=== PATIENT | female | born 1955 | race Caucasian/White ===

== ENCOUNTER 2016-12-31 16:21 | Emergency (ER) | payer BC ==
[2016-12-31 16:24] VITALS: TEMP 98.5; BMI 40.9
--- NOTE | 2016-12-31 18:16 | PDOC ---
[id number] 61 year old female with significant medical hx of GERD, HTN, and intermittent heart palpitations who is presenting to the ED with abdominal pain and nausea. Patient reports two days ago having lower abdominal pain with nausea , vomiting, and diarrhea. Patient endorses four episodes of bloody loose stool at that time. Today the patient denies any vomiting but complains of crampy lower abdominal pain, that she describes as sharp, with chills and nausea. The patient also reports having one BM today. The patient endorses a history of episodic colitis. Denies fever, dysuria, chest pain, recent abx or recent travel. PMD: Mane Smith MD <Chelita Eubanks - Last Filed: 12/31/16 18:18> - General History Source: Patient, Care Provider <Karina Saenz - Last Filed: 01/08/17 13:31> - General Chief Complaint: Pain Stated Complaint: STOMACH PAIN Past History <Chelita Eubanks - Last Filed: 12/31/16 18:18> - Past Medical History Cardiac Disorders: Yes (? SVT) GI Disorders: Yes (GASTRITIS) HTN: Yes - Surgical History Cholecystectomy: Yes - Psycho/Social/Smoking Cessation Hx Anxiety: No Suicidal Ideation: No Smoking Status: No Smoking History: Never smoked Number of Cigarettes Smoked Daily: 0 Information on smoking cessation initiated: No Hx Alcohol Use: No Drug/Substance Use Hx: No Substance Use Type: None Hx Substance Use Treatment: No <Karina Saenz - Last Filed: 01/08/17 13:31> - Past Medical History Allergies/Adverse Reactions: Allergies Allergy/AdvReac Type Severity Reaction Status Date / Time No Known Allergies Allergy Verified 12/31/16 16:24 Home Medications: Ambulatory Orders Amlodipine Besylate [Norvasc] 25 mg PO DAILY 01/26/12 Pantoprazole Sodium [Protonix] 40 mg PO DAILY 12/31/14 Sulfamethoxazole/Trimethoprim [Bactrim *Ds*] 1 tab PO BID #14 tablet 12/31/16 Review of Systems - Review of Systems Comments:: 12/31/16 18:19 CONSTITUTIONAL: Present: chills Absent: fever, diaphoresis, generalized weakness, malaise, loss of appetite HEENT: Absent: rhinorrhea, nasal congestion, throat pain, throat swelling, difficulty swallowing, mouth swelling, ear pain, eye pain, visual changes CARDIOVASCULAR: Absent: chest pain, syncope, palpitations, irregular heart rate, lightheadedness , peripheral edema RESPIRATORY: Absent: cough, shortness of breath, dyspnea with exertion, orthopnea, wheezing, stridor, hemoptysis GASTROINTESTINAL: Present: abdominal pain, nausea, vomiting diarrhea, blood in stool Absent: abdominal distension, constipation, melena, hematochezia GENITOURINARY: Absent: dysuria, frequency, urgency, hesitancy, hematuria, flank pain, genital pain MUSCULOSKELETAL: Absent: myalgia, arthralgia, joint swelling SKIN: Absent: rash, itching, pallor HEMATOLOGIC/IMMUNOLOGIC: Absent: easy bleeding, easy bruising, lymphadenopathy, frequent infections ENDOCRINE: Absent: unexplained weight gain, unexplained weight loss, heat intolerance, cold intolerance NEUROLOGIC: Absent: headache, focal weakness or paresthesia, dizziness, unsteady gait, seizure, mental status changes, bladder or bowel incontinence. PSYCHIATRIC: Absent: anxiety, depression, suicidal or homicidal ideation, hallucinations <Chelita Eubanks - Last Filed: 12/31/16 18:18> - Review of Systems Constitutional: Yes: Chills. No: Diaphoresis, Fever Respiratory: No: Cough, Orthopnea Cardiac (ROS): No: Chest Pain, Edema ABD/GI: Yes: Abd. Pain w/ defecation : No: Dysuria All Other Systems: Reviewed and Negative <Karina Saenz - Last Filed: 01/08/17 13:31> *Physical Exam - Vital Signs Last Vital Signs Temp Pulse Resp BP Pulse Ox 98.5 F 79 18 155/83 98 12/31/16 16:22 12/31/16 16:22 12/31/16 16:22 12/31/16 16:22 12/31/16 16:22 - Physical Exam Comments: 12/31/16 18:21 GENERAL: Well developed, well nourished. Awake and alert. No acute distress. HEENT: Normocephalic, atraumatic. PERRLA, EOMI. No conjunctival pallor. Sclera are non- icteric. Moist mucous membranes. Oropharynx is clear. NECK: Supple. Full ROM. No JVD. Carotid pulses 2+ and symmetric, without bruits. No thyromegaly. No lymphadenopathy. CARDIOVASCULAR: Regular rate and rhythm. No murmurs, rubs, or gallops. Distal pulses are 2+ and symmetric. PULMONARY: No evidence of respiratory distress. Lungs clear to auscultation bilaterally. No wheezing, rales or rhonchi. ABDOMINAL: Obese, mild suprapubic tenderness to palpation. Non-distended. No rebound or guarding. No organomegaly. Normoactive bowel sounds. MUSCULOSKELETAL: Normal range of motion at all joints. No bony deformities or tenderness. No CVA tenderness. EXTREMITIES: No cyanosis. No clubbing. No edema. No calf tenderness. SKIN: Warm and dry. Normal capillary refill. No rashes. No jaundice. NEUROLOGICAL: Alert, awake, appropriate. Cranial nerves 2-12 intact. Normal speech. Gait is normal without ataxia. PSYCHIATRIC: Cooperative. Good eye contact. Appropriate mood and affect. <Chelita Eubanks - Last Filed: 12/31/16 18:18> - Vital Signs Last Vital Signs Temp Pulse Resp BP Pulse Ox 98.5 F 79 18 155/83 98 12/31/16 16:22 12/31/16 16:22 12/31/16 16:22 12/31/16 16:22 12/31/16 16:22 <Karina Saenz - Last Filed: 01/08/17 13:31> ED Treatment Course - LABORATORY CBC & Chemistry Diagram: 12/31/16 18:07 12/31/16 18:07 <Chelita Eubanks - Last Filed: 12/31/16 18:18> - LABORATORY CBC & Chemistry Diagram: 12/31/16 18:07 12/31/16 18:07 - RADIOLOGY Radiology Studies Ordered: Category Date Time Status ABDOMEN & PELVIS CT WITH CONTR [CT] Stat CT Scan 12/31/16 18:08 Ordered <Karina Saenz - Last Filed: 01/08/17 13:31> Medical Decision Making - Medical Decision Making 12/31/16 18:14 61 yo with h/o HTN here with episode of lower abd pain, n/v /d. pt states sxs started 2 days ago, with 3 - 4 times nonbloody emesis, loose stool with blood x 3. sharp lower abd pain. no h/o renal colic. does have h/o episodic colitis. no f/c no travel. no abx. pcp Smith. on exam, abd with mild lower abd ttp, no reboun or guarding. ddgx: diverticulitis, uti pyelo colitis, renal colic. plan labs lipase ua ct a/ p . pt declined pain medication at this time. iv hydration. denies persistant nausea. d/w dr. smith. <Karina Saenz - Last Filed: 01/08/17 13:31> *DC/Admit/Observation/Transfer - Attestations Scribe Attestion: 12/31/16 18:22 Documentation prepared by Chelita Eubanks, acting as medical voucher clerk for Karina Saenz MD. <Chelita Eubanks - Last Filed: 12/31/16 18:18> <Karina Saenz - Last Filed: 01/08/17 13:31> Diagnosis at time of Disposition: Abdominal pain Qualifiers: Abdominal location: generalized Qualified Code(s): R10.84 - Generalized abdominal pain UTI (urinary tract infection) Qualifiers: Urinary tract infection type: site unspecified Hematuria presence: without hematuria Qualified Code(s): N39.0 - Urinary tract infection, site not specified - Discharge Dispostion Disposition: HOME - Prescriptions Prescriptions: Sulfamethoxazole/Trimethoprim [Bactrim *Ds*] 1 tab PO BID #14 tablet - Referrals Referrals: Mane Smith MD [Primary Care Provider] - - Patient Instructions Printed Discharge Instructions: DI for Urinary Tract Infection (UTI), DI for Abdominal Pain-Adult Additional Instructions: Please follow u with your primary care doctor if sympotms don't improve
[2016-12-31 18:19] LABS: BASOPHIL 0.7 % (0-2.0); EOSINOPHIL 1.4 % (0-4.5); MCH 28.2 pg (25.7-33.7); MCHC 32.7 g/dl (32.0-36.0); MEAN CELL VOLUME 86.3 fl (80-96); MEAN PLT VOLUME 10.4 fl (7.5-11.1); NEUTROPHILS 61.3 % (42.8-82.8); PLATELET COUNT 219 K/MM3 (134-434); RDW 14.3 % (11.6-15.6)
[2016-12-31 18:21] LABS: URINE APPEARANCE CLEAR; URINE BILIRUBIN NEGATIVE (NEGATIVE); URINE COLOR LTYELLOW; URINE GLUCOSE (UA) NEGATIVE (NEGATIVE); URINE KETONE NEGATIVE (NEGATIVE); URINE NITRITE NEGATIVE (NEGATIVE); URINE PROTEIN NEGATIVE (NEGATIVE); URINE UROBILINOGEN NEGATIVE E.U./dl (0.2-1.0)
[2016-12-31 18:23] LABS: URINE BLOOD 2+ (NEGATIVE); URINE LEUK ESTERASE TRACE (NEGATIVE)
[2016-12-31 18:24] LABS: URINE MUCUS RARE; URINE RBC 3 /hpf (0-3); URINE WBC 6 /hpf (3-5)
[2016-12-31 19:04] LABS: ALBUMIN 3.6 g/dl (3.4-5.0); ALK PHOS 105 U/L (45-117); ANION GAP 9 (8-16); BILIRUBIN,TOTAL 0.2 mg/dL (0.2-1.0); CALCIUM 9.3 mg/dL (8.5-10.1); CO2 28 mmol/L (21-32); COCKROFT - GAULT 111.265; CREATININE 0.9 mg/dL (0.55-1.02); GLUCOSE,RANDOM 112 mg/dL (74-106); SGOT/AST 17 U/L (15-37); SGPT/ALT 28 U/L (12-78); TOT PROT 7.2 g/dl (6.4-8.2)
[2016-12-31] MEDS ORDERED: SULFAMETHOXAZOLE/TRIMETHOPRIM 800MG/160MG D.S. TABLET PO ONE (20:34)
--- NOTE | 2016-12-31 20:37 | PDOC ---
*Physical Exam - Vital Signs Last Vital Signs Temp Pulse Resp BP Pulse Ox 98.5 F 79 18 155/83 98 12/31/16 16:22 12/31/16 16:22 12/31/16 16:22 12/31/16 16:22 12/31/16 16:22 ED Treatment Course - LABORATORY CBC & Chemistry Diagram: 12/31/16 18:07 12/31/16 18:07 - ADDITIONAL ORDERS Additional order review: Laboratory Results 12/31/16 12/31/16 12/31/16 18:07 18:07 16:45 Sodium 141 Potassium 3.9 Chloride 104 Carbon Dioxide 28 Anion Gap 9 BUN 16 Creatinine 0.9 Creat Clearance w eGFR > 60 Random Glucose 112 H Calcium 9.3 Total Bilirubin 0.2 AST 17 ALT 28 Alkaline Phosphatase 105 Total Protein 7.2 Albumin 3.6 Lipase 110 Urine Color Ltyellow Urine Appearance Clear Urine pH 6.0 Urine Protein Negative Urine Glucose (UA) Negative Urine Ketones Negative Urine Blood 2+ H Urine Nitrite Negative Urine Bilirubin Negative Urine Urobilinogen Negative Ur Leukocyte Esterase Trace H Urine RBC 3 Urine WBC 6 Ur Epithelial Cells Rare Urine Mucus Rare 12/31/16 18:07 RBC 4.94 MCV 86.3 MCHC 32.7 RDW 14.3 MPV 10.4 D Neutrophils % 61.3 D Lymphocytes % 27.5 D Monocytes % 9.1 Eosinophils % 1.4 D Basophils % 0.7 *DC/Admit/Observation/Transfer Diagnosis at time of Disposition: Abdominal pain Qualifiers: Abdominal location: generalized Qualified Code(s): R10.84 - Generalized abdominal pain Urinary tract infection Qualifiers: Urinary tract infection type: site unspecified Hematuria presence: without hematuria Qualified Code(s): N39.0 - Urinary tract infection, site not specified - Discharge Dispostion Disposition: HOME Condition at time of disposition: Stable Admit: No - Referrals Referrals: Mane Rangel MD [Primary Care Provider] - - Patient Instructions Printed Discharge Instructions: DI for Urinary Tract Infection (UTI), DI for Abdominal Pain-Adult Additional Instructions: Please follow u with your primary care doctor if sympotms don't improve - Post Discharge Activity
[2016-12-31] MEDS ORDERED: SULFAMETHOXAZOLE/TRIMETHOPRIM 800MG/160MG D.S. TABLET ONE (20:52)
[2016-12-31 21:09] VITALS: BP 148/82; PULSE 77
== END 2016-12-31 21:10 | disposition home or self-care (01) ==
LOC: JER 16:21
DX: N39.0 Urinary tract infection, site not specified (principal); R00.2 Palpitations; I10 Essential (primary) hypertension; K21.9 Gastro-esophageal reflux disease without esophagitis
CPT/HCPCS: 36415; 74177-TC; 80053; 81003; 81015; 83690; 85025; 99283-25

== ENCOUNTER 2019-04-17 13:06 | Emergency (ER) | payer SELFPAY ==
[2019-04-17 13:17] VITALS: BP 124/68; PULSE 68; TEMP 98.5; BMI 42.0
--- NOTE | 2019-04-17 13:17 | PDOC ---
Rapid Medical Evaluation Chief Complaint: Nausea/Vomiting Time Seen by Provider: 04/17/19 13:15 Medical Evaluation: Allergies Allergy/AdvReac Type Severity Reaction Status Date / Time No Known Allergies Allergy Verified 03/01/18 17:36 04/17/19 13:15 CC: epigastric pain with vomiting PE: epigastric and RUQ tenderness- no guarding Orders: abdominal w/u Patient will proceed to ED for continued evaluation. Discharge Disposition - Diagnosis Abdominal pain - Referrals Referrals: Mane Rangel MD [Primary Care Provider] - - Patient Instructions - Post Discharge Activity
[2019-04-17] MEDS ORDERED: PANTOPRAZOLE SODIUM 40 MG in SODIUM CHLORIDE 100 ML IVPB ONE (13:27)
[2019-04-17] MEDS ORDERED: PANTOPRAZOLE SODIUM 40 MG/100 ML BAG IVPB ONE (13:57)
[2019-04-17 14:53] LABS: EOS % 2.2 % (0-4.5); HEMATOCRIT 42.9 % (32.4-45.2); HEMOGLOBIN 14.4 GM/dL (10.7-15.3); LYMPH % 21.7 % (8-40); MCH 29.2 pg (25.7-33.7); MCHC 33.5 g/dl (32.0-36.0); MONO % 9.4 % (3.8-10.2); NEUT % 65.7 % (42.8-82.8); PLATELET COUNT 215 K/MM3 (134-434); RBC 4.93 M/mm3 (3.60-5.2); RDW 13.8 % (11.6-15.6); WHITE BLOOD COUNT 5.6 K/mm3 (4.0-10.0)
[2019-04-17 15:19] LABS: ALBUMIN 3.4 g/dl (3.4-5.0); ALK PHOS 95 U/L (45-117); ANION GAP 5 MMOL/L (8-16); BILIRUBIN,TOTAL 0.6 mg/dL (0.2-1); BLOOD UREA NITROGEN 12.8 mg/dL (7-18); CHLORIDE 108 mmol/L (98-107); CO2 29 mmol/L (21-32); CREATININE 0.8 mg/dL (0.55-1.3); GLUCOSE,RANDOM 98 mg/dL (74-106); LIPASE 61 U/L (73-393); POTASSIUM 4.1 mmol/L (3.5-5.1); SGOT/AST 54 U/L (15-37); SGPT/ALT 54 U/L (13-61); SODIUM 142 mmol/L (136-145); TOT PROT 7.3 g/dl (6.4-8.2)
--- NOTE | 2019-04-17 15:46 | PDOC ---
History of Present Illness - General Chief Complaint: Nausea/Vomiting Stated Complaint: VOMITING,ABD PAIN,DIZZINESS Time Seen by Provider: 04/17/19 13:15 History Source: Patient Exam Limitations: No Limitations - History of Present Illness Travel History: No Initial Comments: 04/17/19 14:06 63-year-old female presents to ED with complaints of epigastric pain radiating to her right upper quadrant with mild nausea and decreased appetite. Patient denies GI disorders but does state history of GERD and takes protonic's on a daily basis although she missed today's dose patient states symptoms have been intermittent for the past few weeks and was pending blood work by her PCP Dr. smith but failed to have it collected. Timing/Duration: reports: intermittent Quality: reports: mild, moderate, sharpness Abdominal Pain Onset Location: reports: RUQ, epigastric Pain Radiation: reports: no radiation Activities at Onset: reports: none Aggravating Factors: improves with: None Alleviating Factors: improves with: None Past History - Travel Traveled outside of the country in the last 30 days: No Close contact w/someone who was outside of country & ill: No - Past Medical History Allergies/Adverse Reactions: Allergies Allergy/AdvReac Type Severity Reaction Status Date / Time No Known Allergies Allergy Verified 04/17/19 13:17 Home Medications: Ambulatory Orders Amlodipine Besylate [Norvasc] 25 mg PO DAILY 01/26/12 Pantoprazole Sodium [Protonix] 40 mg PO DAILY 12/31/14 Ibuprofen [Motrin -] 600 mg PO TID #21 tablet 03/01/18 Methocarbamol [Robaxin -] 500 mg PO TID #21 tablet 03/01/18 Cardiac Disorders: Yes (? SVT) COPD: No GI Disorders: Yes (GASTRITIS) HTN: Yes - Surgical History Cholecystectomy: No - Suicide/Smoking/Psychosocial Hx Smoking Status: No Smoking History: Never smoked Have you smoked in the past 12 months: No Number of Cigarettes Smoked Daily: 0 Hx Alcohol Use: No Drug/Substance Use Hx: No Substance Use Type: None Hx Substance Use Treatment: No Patient Lives Alone: No Lives with/in: spouse/SO Abd/GI Specific PMHX - Complaint Specific PMHX GERD: Yes Review of Systems - Review of Systems Able to Perform ROS?: Yes Constitutional: No: Symptoms Reported HEENTM: No: Symptoms Reported Respiratory: No: Symptoms reported Cardiac (ROS): No: Symptoms Reported ABD/GI: Yes: Nausea, Poor Appetite, Abdominal cramping : No: Symptoms Reported Musculoskeletal: No: Symptoms Reported Integumentary: No: Symptoms Reported Neurological: No: Symptoms reported Endocrine: No: Symptoms Reported *Physical Exam - Vital Signs Last Vital Signs Temp Pulse Resp BP Pulse Ox 98.5 F 68 16 124/68 95 04/17/19 13:15 04/17/19 13:15 04/17/19 13:15 04/17/19 13:15 04/17/19 13:15 - Physical Exam General Appearance: Yes: Nourished, Appropriately Dressed. No: Apparent Distress HEENT: positive: EOMI, JAMES, TMs Normal, Pharynx Normal. negative: Pale Conjunctivae Neck: positive: Supple Respiratory/Chest: positive: Lungs Clear, Normal Breath Sounds. negative: Respiratory Distress, Accessory Muscle Use Cardiovascular: positive: Regular Rhythm, Regular Rate. negative: Murmur Gastrointestinal/Abdominal: positive: Soft, Tenderness (epigastric right upper quadrant. negative Spencer sign) Musculoskeletal: negative: CVA Tenderness Extremity: positive: Normal Inspection Integumentary: positive: Normal Color, Warm, Moist Neurologic: positive: Motor Strength 5/5 (ambulatory) ED Treatment Course - LABORATORY CBC & Chemistry Diagram: 04/17/19 14:35 04/17/19 14:35 - ADDITIONAL ORDERS Additional order review: Laboratory Results 04/17/19 04/17/19 14:35 14:35 Sodium 142 Potassium 4.1 Chloride 108 H Carbon Dioxide 29 Anion Gap 5 L BUN 12.8 Creatinine 0.8 Est GFR (CKD-EPI)AfAm 92.22 Est GFR (CKD-EPI)NonAf 79.57 Random Glucose 98 Calcium 9.0 Total Bilirubin 0.6 AST 54 H ALT 54 Alkaline Phosphatase 95 Creatine Kinase 181 171 Troponin I < 0.02 Total Protein 7.3 Albumin 3.4 Lipase 61 L - RADIOLOGY Radiology Studies Ordered: Category Date Time Status ABDOMEN US -LIMITED [US] Stat Ultrasound 04/17/19 13:26 Completed - Medications Given in the ED: ED Medications Discontinued Medications Generic Name Dose Route Start Last Admin Trade Name Freq PRN Reason Stop Dose Admin Pantoprazole Sodium 40 mg/ 100 mls @ 200 mls/hr 04/17/19 13:27 04/17/19 14:44 Sodium Chloride IVPB 04/17/19 13:56 200 mls/hr ONCE ONE Administration Medical Decision Making - Medical Decision Making 04/17/19 14:20 Chief complaint: mid abdominal pain causing nausea and decreased appetite. Patient with history of GERD and was sent by PCP for evaluation. Exam: Epigastric and right upper quadrant tenderness on exam negative Spencer's. Vital signs stable Plan: Labs, urine, EKG and limited abdominal ultrasound. Abdominal CT 2 from 2018 reviewed 04/17/19 15:51 Laboratory Tests 04/17/19 04/17/19 04/17/19 14:35 14:35 14:35 WBC 5.6 Hgb 14.4 Hct 42.9 Absolute Neuts (auto) 3.7 Sodium 142 Potassium 4.1 Chloride 108 H Carbon Dioxide 29 Anion Gap 5 L BUN 12.8 Creatinine 0.8 Calcium 9.0 AST 54 H ALT 54 Alkaline Phosphatase 95 Creatine Kinase 171 CK-MB (CK-2) < 1.0 Total Protein 7.3 Lipase 61 L 04/17/19 15:52 Shows fatty liver versus hepatocellular disease with focal areas of fatty sparing adjacent to the gallbladder. Multiple non-mobile gallstones measuring up to 1.8 cm without sonographic evidence of acute cholecystitis noted. Patient to be given a referral to surgeon. Awaiting urine collection. Patient states feeling better. 04/17/19 16:45 Will call pt with urine results. *DC/Admit/Observation/Transfer Diagnosis at time of Disposition: Abdominal pain, Gallstones - Discharge Dispostion Disposition: HOME Condition at time of disposition: Improved - Referrals Referrals: Graham Grossman MD [Staff Physician] - Mane Smith MD [Primary Care Provider] - - Patient Instructions Printed Discharge Instructions: DI for Gallstones Additional Instructions: Please follow-up with referred surgeon. I will call if your urine analysis is positive for infection. Otherwise read over information about gallstones in diet. - Post Discharge Activity
[2019-04-17] MEDS ORDERED: KETOROLAC TROMETHAMINE 30 MG/1 ML VIAL IVPUSH ONE (15:56)
[2019-04-17] MEDS ORDERED: KETOROLAC TROMETHAMINE 30 MG/1 ML VIAL ONE (15:59)
--- NOTE | 2019-04-17 16:18 | PDOC ---
*Physical Exam - Vital Signs Last Vital Signs Temp Pulse Resp BP Pulse Ox 98.5 F 68 16 124/68 95 04/17/19 13:15 04/17/19 13:15 04/17/19 13:15 04/17/19 13:15 04/17/19 13:15 ED Treatment Course - LABORATORY CBC & Chemistry Diagram: 04/17/19 14:35 04/17/19 14:35 - ADDITIONAL ORDERS Additional order review: Laboratory Results 04/17/19 04/17/19 14:35 14:35 Sodium 142 Potassium 4.1 Chloride 108 H Carbon Dioxide 29 Anion Gap 5 L BUN 12.8 Creatinine 0.8 Est GFR (CKD-EPI)AfAm 92.22 Est GFR (CKD-EPI)NonAf 79.57 Random Glucose 98 Calcium 9.0 Total Bilirubin 0.6 AST 54 H ALT 54 Alkaline Phosphatase 95 Creatine Kinase 181 171 Creatine Kinase Index No Result Required. No Result Required. CK-MB (CK-2) < 1.0 < 1.0 Troponin I < 0.02 Total Protein 7.3 Albumin 3.4 Lipase 61 L 04/17/19 14:35 RBC 4.93 MCV 87.0 MCHC 33.5 RDW 13.8 MPV 9.0 Neutrophils % 65.7 Lymphocytes % 21.7 Monocytes % 9.4 Eosinophils % 2.2 Basophils % 1.0 - Medications Given in the ED: ED Medications Discontinued Medications Generic Name Dose Route Start Last Admin Trade Name Freq PRN Reason Stop Dose Admin Pantoprazole Sodium 40 mg/ 100 mls @ 200 mls/hr 04/17/19 13:27 04/17/19 14:44 Sodium Chloride IVPB 04/17/19 13:56 200 mls/hr ONCE ONE Administration Ketorolac Tromethamine 30 mg 04/17/19 15:56 04/17/19 16:01 Toradol Injection - IVPUSH 04/17/19 15:57 30 mg ONCE ONE Administration Medical Decision Making - Medical Decision Making 04/17/19 16:16 Agree with plan per ROBERT Chow Pt with prior episode of abdominal pain, cholelithiasis 04/17/19 16:16 Laboratory Tests 04/17/19 04/17/19 14:35 14:35 Creatine Kinase 171 CK-MB (CK-2) < 1.0 Troponin I < 0.02 04/17/19 16:17 Multiple non mobile gallstones measuring 1.8 cm, no evidence of acute cholecystitis EKG: NSR rate of 54 bpm, axis nml, intervals nml, no st elevation or depression , t waves upright Pending surgical consult *DC/Admit/Observation/Transfer Diagnosis at time of Disposition: Abdominal pain, Gallstones - Discharge Dispostion Disposition: HOME Condition at time of disposition: Improved - Referrals Referrals: Graham Grossman MD [Staff Physician] - Mane Rangel MD [Primary Care Provider] - - Patient Instructions Printed Discharge Instructions: DI for Gallstones Additional Instructions: Please follow-up with referred surgeon. I will call if your urine analysis is positive for infection. Otherwise read over information about gallstones in diet. - Post Discharge Activity
[2019-04-17 16:54] LABS: EPI CELLS 11.8 /HPF (0-5/HPF); HYALINE CASTS 14 /lpf (0-8); PH,URINE 6.5 (5.0-8.0); URINE APPEARANCE CLOUDY; URINE BACTERIA 145.8 /hpf (NEGATIVE); URINE BILIRUBIN NEGATIVE (NEGATIVE); URINE COLOR YELLOW; URINE GLUCOSE (UA) NEGATIVE (NEGATIVE); URINE KETONE NEGATIVE (NEGATIVE); URINE LEUK ESTERASE TRACE (NEGATIVE); URINE NITRITE NEGATIVE (NEGATIVE); URINE PROTEIN TRACE (NEGATIVE); URINE WBC 8 /hpf (0-5)
[2019-04-17 18:07] LABS: URINE RBC 6.6 /hpf (0-4)
--- NOTE | 2019-04-18 16:16 | EKG ---
Test Reason : Blood Pressure : / mmHG Vent. Rate : 054 BPM Atrial Rate : 054 BPM P-R Int : 128 ms QRS Dur : 102 ms QT Int : 448 ms P-R-T Axes : 042 -04 013 degrees QTc Int : 424 ms SINUS BRADYCARDIA OTHERWISE NORMAL ECG WHEN COMPARED WITH ECG OF 28-APR-2016 18:35, NO SIGNIFICANT CHANGE WAS FOUND Confirmed by MD MAYCOL, MARCIA ([id number]) on 04/18/2019 4:15:45 PM Referred By: Confirmed By:MARCIA SEVERINO MD
== END 2019-04-17 17:23 | disposition home or self-care (01) ==
LOC: JER 13:06
PROC: 3E033GC Introduction of Other Therapeutic Substance into Peripheral Vein, Percutaneous Approach (ICD-10-PCS; principal; 2019-04-17)
PROC: 3E0333Z Introduction of Anti-inflammatory into Peripheral Vein, Percutaneous Approach (ICD-10-PCS; 2019-04-17)
DX: R10.13 Epigastric pain (principal); K80.80 Other cholelithiasis without obstruction
CPT/HCPCS: 36415; 76705-TC; 80053; 81003; 82550; 82553; 83690; 84484; 85025; 87086; 93005; 93010; 99283-25

== ENCOUNTER 2019-06-16 21:20 | Emergency (ER) | payer OTHER ==
[2019-06-16 21:32] VITALS: BP 153/70; PULSE 65; TEMP 98.2; BMI 41.3
--- NOTE | 2019-06-16 21:34 | PDOC ---
Rapid Medical Evaluation Chief Complaint: Injury Time Seen by Provider: 06/16/19 21:29 Medical Evaluation: Allergies Allergy/AdvReac Type Severity Reaction Status Date / Time No Known Allergies Allergy Verified 04/17/19 13:17 06/16/19 21:30 I have performed a brief in-person evaluation of this patient. The patient presents with a chief complaint of: neck, back, arms, legs pain s/p fall this afternoon. She was pulling a drop wire hanger, and went backwards, landing on the floor. No LOC, pt does not think she hit her head anywhere. No AC use. Denies dizziness, no CP prior to fall The patient will proceed to the ED for further evaluation. Discharge Disposition - Diagnosis Fall - Referrals - Patient Instructions - Post Discharge Activity
--- NOTE | 2019-06-16 22:05 | PDOC ---
History of Present Illness - General Chief Complaint: Injury Stated Complaint: FALL Time Seen by Provider: 06/16/19 21:29 History Source: Patient - History of Present Illness Occurred: reports: this evening Pain Location: reports: back Method of Injury: Yes: fall Past History - Past Medical History Allergies/Adverse Reactions: Allergies Allergy/AdvReac Type Severity Reaction Status Date / Time No Known Allergies Allergy Verified 06/16/19 21:32 Home Medications: Ambulatory Orders Amlodipine Besylate [Norvasc] 25 mg PO DAILY 01/26/12 Pantoprazole Sodium [Protonix] 40 mg PO DAILY 12/31/14 Ibuprofen [Motrin -] 600 mg PO TID #21 tablet 03/01/18 Methocarbamol [Robaxin -] 500 mg PO TID #21 tablet 03/01/18 Cardiac Disorders: Yes (? SVT) COPD: No GI Disorders: Yes (GASTRITIS) HTN: Yes - Surgical History Cholecystectomy: Yes - Psycho Social/Smoking Cessation Hx Smoking Status: No Smoking History: Never smoked Have you smoked in the past 12 months: No Number of Cigarettes Smoked Daily: 0 Hx Alcohol Use: No Drug/Substance Use Hx: No Substance Use Type: None Hx Substance Use Treatment: No Trauma Specific PMHX - Complaint Specific PMHX Back Injury: Yes Review of Systems - Review of Systems ABD/GI: No: Nausea, Vomiting, Abdominal cramping Musculoskeletal: Yes: Back Pain. No: Joint Pain, Neck Pain Neurological: No: Headache, Numbness, Tingling, Weakness, Dizziness *Physical Exam - Vital Signs Last Vital Signs Temp Pulse Resp BP Pulse Ox 98.2 F 65 18 153/70 100 06/16/19 21:29 06/16/19 21:29 06/16/19 21:29 06/16/19 21:29 06/16/19 21:29 - Physical Exam General Appearance: Yes: Appropriately Dressed. No: Apparent Distress HEENT: positive: Normal Voice Neck: positive: Supple Respiratory/Chest: negative: Respiratory Distress Gastrointestinal/Abdominal: positive: Normal Bowel Sounds, Soft. negative: Tender, Distended, Guarding, Rebound Musculoskeletal: negative: Vertebral Tenderness Extremity: positive: Normal Inspection Integumentary: positive: Dry, Warm Neurologic: positive: Fully Oriented, Alert, Normal Mood/Affect Medical Decision Making - Medical Decision Making 06/16/19 22:07 63 yo F, morbidly obesed, HTN, s/p lap karen 1 month ago at [facility], here w/ upper back pain s/p fall. States she lost her balance and fell onto her back while closing her garage around 4 hrs ago. Shates she did not hit head and denies LOC , headache, dizziness, nausea or vomiting. Not on any blood thinners. Denies any other injuries. States she contacted her surgeon who recommended that she come in to ED for evaluation given recent karen however patient denies any worsening of her baseline abd "soreness" see exam M/l upper back sprain s/p fall No e/o serious injury on exam No head injury and not on blood thinners per pt -Dc w/ pain control as needed Discharge - Discharge Information Problems reviewed: Yes Clinical Impression/Diagnosis: Fall Qualifiers: Encounter type: initial encounter Qualified Code(s): W19.XXXA - Unspecified fall, initial encounter Back pain Qualifiers: Back pain location: thoracic back pain Chronicity: acute Back pain laterality: bilateral Qualified Code(s): M54.6 - Pain in thoracic spine Condition: Good Disposition: HOME - Follow up/Referral Referrals: Mane Rangel MD [Primary Care Provider] - - Patient Discharge Instructions Patient Printed Discharge Instructions: DI for Back Strain or Sprain Additional Instructions: There is no evidence of serious injury from your fall Take tylenol for pain as needed - Post Discharge Activity
== END 2019-06-16 22:15 | disposition home or self-care (01) ==
LOC: JERFT 21:20
DX: M54.6 Pain in thoracic spine (principal); M54.9 Dorsalgia, unspecified; I10 Essential (primary) hypertension; E66.01 Morbid (severe) obesity due to excess calories; Z68.41 Body mass index [BMI] 40.0-44.9, adult; I47.1 Supraventricular tachycardia; K52.9 Noninfective gastroenteritis and colitis, unspecified
CPT/HCPCS: 99283-25

== ENCOUNTER 2020-08-25 13:00 | Emergency (ER) | payer OTHER | END 2020-08-25 14:01 | disposition home or self-care (01) | LOC: JVIRT 13:00 | DX: Z11.59 Encounter for screening for other viral diseases (principal) | CPT/HCPCS: C9803; Q3014-GT; U0003 ==

== ENCOUNTER 2021-01-20 12:18 | Emergency (ER) | payer OTHER ==
[2021-01-20 12:37] VITALS: BP 137/75; PULSE 64; TEMP 97.5; BMI 41.1
== END 2021-01-20 14:56 | disposition home or self-care (01) ==
LOC: JERFT 12:18
DX: M25.562 Pain in left knee (principal)
CPT/HCPCS: 93971-TC; 99284-25